=== PATIENT | male | born 1930 | race African-American/Black ===

== ENCOUNTER 2019-04-26 15:52 | Emergency (ER) | payer MEDICARE ==
[~2019-04-26] VITALS: Ht 175.3 cm; Wt 72.0 kg
[~2019-04-26 15:52] MED LIST: AMOX125S12 PO; APIX5TAB PO; CARV6.2548 PO; DONE10TA43 PO; FURO40TA5 PO; LOSA50TA41 PO; OMEP20CA5 PO; SIMV20TA6 PO
[2019-04-26 15:57] VITALS: BP 110/60
== END 2019-04-26 16:44 | disposition left against medical advice (07) ==
LOC: ER 16:01
DX: R55 Syncope and collapse (principal); Z53.21 Procedure and treatment not carried out due to patient leaving prior to being seen by health care provider